=== PATIENT | male | born 1955 | race African-American/Black ===

== ENCOUNTER 2017-08-09 08:09 | Emergency (ER) | payer MEDICARE, MEDICAID ==
[~2017-08-09] VITALS: Ht 172.7 cm; Wt 89.0 kg
[2017-08-09] MEDS ORDERED: LISI-604 PO (08:25)
[2017-08-09] MEDS ORDERED: TRAM150C40 PO (08:25)
[2017-08-09] MEDS ORDERED: FERR325T6 PO (08:25)
[2017-08-09] MEDS ORDERED: PIOG15TA23 PO (08:25)
[2017-08-09] MEDS ORDERED: METF10002 PO (08:25)
[2017-08-09] MEDS ORDERED: ACET167L14 PO (08:25)
[2017-08-09] MEDS ORDERED: SIMV20TA6 PO (08:25)
[2017-08-09] MEDS ORDERED: FAMO20TA8 PO (08:25)
[2017-08-09] MEDS ORDERED: ACETAMINOPHEN 325MG TABLET PO ONE (08:45)
[2017-08-09 10:20] VITALS: BP 116/88
== END 2017-08-09 10:25 | disposition home or self-care (01) ==
LOC: ER 08:52
DX: M25.552 Pain in left hip (principal); I10 Essential (primary) hypertension; E11.9 Type 2 diabetes mellitus without complications; W01.0XXA Fall on same level from slipping, tripping and stumbling without subsequent striking against object, initial encounter; Y93.89 Activity, other specified; Y99.8 Other external cause status; Y92.89 Other specified places as the place of occurrence of the external cause
CPT/HCPCS: 72100; 72170; 99284

== ENCOUNTER → 2017-09-28 | Outpatient (CLI) | payer MEDICARE, MEDICAID ==
[~2017-09-28] MED LIST: ACET167L14 PO; FAMO20TA8 PO; FERR325T6 PO; GADOBENATE DIMEGLUMINE 529 MG/ML 10ML IV ONE; LISI-604 PO; METF10002 PO; PIOG15TA23 PO; SIMV20TA6 PO; TRAM150C25 PO
== END | disposition home or self-care (01) ==
LOC: MRI 07:13
PROVIDERS: ATTEND Internal Medicine Hematology & Oncology
DX: C7A.8 Other malignant neuroendocrine tumors (principal); G31.89 Other specified degenerative diseases of nervous system; R90.82 White matter disease, unspecified
CPT/HCPCS: 70553; A9577